=== PATIENT | male | born 1990 | race Caucasian/White ===

== ENCOUNTER 2023-09-29 16:35 | Emergency (ER) | payer OTHER, SELFPAY ==
--- NOTE | 2023-09-29 16:38 | ED_ITS ---
HPI - General Adult General Time Seen by Provider: 16:38 Date Seen: 09/29/23 Chief complaint: Chest Pain Stated complaint: chest pain Time Seen by Provider: 09/29/23 16:37 Source: patient, RN notes reviewed and old records reviewed Mode of arrival: ambulatory Limitations: no limitations History of Present Illness HPI narrative: 33-year-old male who presents today with chest pain. Patient notes left lower chest pain since yesterday with, it is been constant since then, worse with breathing. Some shortness of breath. Denies nausea, vomiting, radiation of pain. Took Aleve a couple hours ago for this. No trauma. No cough, no fever. Related Data Home Medications ?Medication ?Instructions ?Recorded ?Confirmed bupropion HCl 300 mg 24 hr tablet, 450 mg PO DAILY 09/29/23 09/29/23 extended release (Wellbutrin XL) clonazepam 0.5 mg tablet 0.5 mg PO .PRN 09/29/23 09/29/23 lamotrigine 100 mg tablet 100 mg PO DAILY 09/29/23 09/29/23 (Lamictal) vilazodone 40 mg tablet (Viibryd) 40 mg PO DAILY 09/29/23 09/29/23 Allergies Allergy/AdvReac Type Severity Reaction Status Date / Time No Known Drug Allergies Allergy Verified 09/29/23 16:51 PFSH PFS Social History Smoking Status: Former smoker How often do you have a drink containing alcohol: 2-3 times a week AUDIT-C Alcohol total score: 3 Non-prescribed substance use: denies use Exam Narrative: Exam Narrative: General: Well-developed and well-nourished, no acute distress Head: Atraumatic and normocephalic Eyes: Pupils are equal reactive, extraocular motions intact, conjunctiva clear ENT: External nose and ears are normal, posterior pharynx without erythema or exudate Neck: No midline cervical tenderness, full spontaneous range of motion the neck, trachea midline, no adenopathy Heart: Regular rate and rhythm no murmurs or thrills Lungs: Clear to auscultation bilaterally without wheezes or crackles Abdomen: Soft, nontender, nondistended with active bowel sounds Musculoskeletal: No tenderness, deformity, or edema Neurologic: Awake, alert, and oriented x3, no gross focal neurologic deficits, cranial nerves intact as tested Psych: Mood and affect are appropriate Skin: No rashes Const: Vital Signs, click to edit/add: Vital Signs - 24 hr 09/29/23 16:47 Temperature 98.0 F Pulse Rate [Left P ulse Oximeter] 72 Respiratory Rate 16 Blood Pressure [Ri ght Upper Arm] 120/74 Pulse Oximetry 96 Oxygen Delivery Me thod Room Air Course Course ED Course: Patient seen and examined, no prior records available for review. Patient presents today with left-sided chest pain constant since yesterday, worse with breathing. Not reproducible on exam. Symptoms are most consistent with pleuritic pain, cannot exclude acute coronary syndrome but clinically unlikely. Low risk by Well's criteria, PERC negative. Labs are ordered. Reevaluation(s) Time of Reevaluation #1: 17:27 Reevaluation #1: EKG independently interpreted by me performed at 4:57 p.m. demonstrates normal sinus rhythm, rate 67, QTC 414, NJ 128, normal axis, normal intervals. No prior for comparison. Labs ordered and independently interpreted by me with normal CBC, negative troponin. Time of Reevaluation #2: 17:48 Reevaluation #2: Labs ordered in panel interpreted by me with normal BMP, negative D-dimer. Chest x-ray independently interpreted by me does not demonstrate acute hemothorax, pneumothorax, or infiltrate. Hepatic panel is normal, lipase is normal. Patient is stable for discharge with outpatient follow-up, Tylenol ibuprofen as needed for pain. Updated patient with diagnosis and plan, he is interested in starting a prednisone burst and this will be prescribed. Vital Signs Vital signs: Initial Vital Signs Temperature 98.0 F 09/29/23 16:47 Temperature Source Temporal Artery Scan 09/29/23 16:47 Pulse Rate 72 09/29/23 16:47 Respiratory Rate 16 09/29/23 16:47 Blood Pressure 120/74 09/29/23 16:47 Blood Pressure Mean 89 09/29/23 16:47 Blood Pressure Position Semi-Fowlers 09/29/23 16:47 Pulse Oximetry 96 09/29/23 16:47 Oxygen Delivery Method Room Air 09/29/23 16:47 Vital Signs Temperature 98.0 F 09/29/23 16:47 Pulse Rate 72 09/29/23 16:47 Respiratory Rate 16 09/29/23 16:47 Blood Pressure 120/74 09/29/23 16:47 Pulse Oximetry 96 09/29/23 16:47 Oxygen Delivery Method Room Air 09/29/23 16:47 Temperature 98.0 F 09/29/23 16:47 Pulse Rate 72 09/29/23 16:47 Respiratory Rate 16 09/29/23 16:47 Blood Pressure 120/74 09/29/23 16:47 Pulse Oximetry 96 09/29/23 16:47 Oxygen Delivery Method Room Air 09/29/23 16:47 Medications Administered Medications: Discontinued Medications Generic Name Dose Route Start Last Admin Trade Name Spike PRN Reason Stop Dose Admin Ketorolac Tromethamine 15 mg 09/29/23 16:57 09/29/23 17:20 Ketorolac 15 Mg/Ml Inj IVP 09/29/23 16:58 15 mg ONCE ONE Administration Medical Decision Making Lab Data Labs: Lab Results 09/29/23 Range/Units 17:03 WBC 6.60 (4.50-11.00) K/uL RBC 4.72 (4.30-5.90) m/uL Hgb 14.7 (13.5-17.5) gm/dL Hct 43.4 (37.0-53.0) % MCV 92 (80-100) fL MCH 31 (26-34) pg MCHC 34 (32-36) gm/dL RDW Coeff of Jennifer 12.5 (11.5-15.5) % Plt Count 246 (140-440) K/uL Neut % (Auto) 53.3 (42.0-72.0) % Lymph % (Auto) 34.8 (20-44) % [place] % (Auto) 8.8 (0.0-11.0) % Eos % (Auto) 2.0 (0.0-7.0) % Baso % (Auto) 0.6 (0.0-3.0) % Neut # (Auto) 3.52 (1.7-7.0) K/uL Lymph # (Auto) 2.30 (0.90-2.90) K/uL [place] # (Auto) 0.60 (0.00-0.90) K/UL Eos # (Auto) 0.13 (0.00-0.50) K/uL Baso # (Auto) 0.04 (0.00-0.30) K/uL Abs Immat Gran (auto) 0.03 (0.00-0.30) K/uL Imm/Tot Granulo (auto) 0.5 % D-Dimer Quant (PE/DVT) 0.12 (0.00-0.50) ug/ml Sodium 138 (135-149) mmol/L Potassium 3.9 (3.6-5.1) mmol/L Chloride 108 (96-114) mmol/L Carbon Dioxide 24 (20-32) mmol/L Anion Gap 6 L (7-15) mEq/L BUN 16 (5-24) mg/dL Creatinine 0.8 (0.5-1.5) mg/dL Estimated Creat Clear 128.25 Estimated GFR 121 ml/min Glucose 92 (60-115) mg/dL Calcium 9.2 (8.4-10.6) mg/dL Magnesium 2.0 (1.5-2.6) mg/dL Total Bilirubin 0.5 (0.1-1.5) mg/dL Direct Bilirubin 0.3 (0.0-0.5) mg/dL AST 20 (12-35) U/L ALT 17 (4-50) U/L Alkaline Phosphatase 65 (40-150) U/L Total Protein 6.8 (6.0-8.3) g/dL Albumin 4.4 (3.3-5.0) g/dL Lipase 131 (23-300) U/L POC Troponin I 0.00 L (0.01-0.04) ng/ml Discharge Plan Discharge Clinical Impression: Pleuritic chest pain Patient Disposition: Home, Self-Care Condition: Stable Instructions: Pleurisy (DC) Additional Instructions: Continue Tylenol and ibuprofen as needed for pain Take prednisone as prescribed Activity Level: Activity as Tolerated Discharge Diet: Regular Prescriptions: No Action vilazodone [Viibryd] 40 mg tablet 40 mg PO DAILY Rx Instructions: must administer with a meal/food lamotrigine [Lamictal] 100 mg tablet 100 mg PO DAILY clonazepam 0.5 mg tablet 0.5 mg PO .PRN bupropion HCl [Wellbutrin XL] 300 mg tablet extended release 24 hr 450 mg PO DAILY Follow Up/Referrals: Provider,Not a Local [Primary Care Provider] - Stand Alone Forms: [facility] Info Instructions
[2023-09-29 16:47] VITALS: BP 120/74; PULSE 72; RESP 16; TEMP 36.7; O2SAT 96; BMI 24.3
--- NOTE | 2023-09-29 16:57 | CRLHL7_ITS ---
For Patients: As a result of the Century Cures Act, medical imaging exams and procedure reports are released immediately into your electronic medical record. You may view this report before your referring provider. If you have questions, please contact your health care provider. INDICATION: Chest pain, not otherwise described. COMPARISON: None available. TECHNIQUE: 1 view. FINDINGS: Medical Devices: None. Lung Volumes: Adequate inspiration. No significant atelectasis. Lungs: Clear lungs. Pleura and Pleural spaces: No significant pleural effusion. No pneumothorax. Mediastinum: Normal cardiomediastinal silhouette. Bony Thorax and Soft Tissues: No significant incidental findings. IMPRESSION: No radiographic findings to explain chest pain. Dictated by Asa Rodriguez MD @ 09/29/2023 5:42:07 PM (Electronically Signed)
[2023-09-29 17:11] LABS: Basophils Absolute Auto 0.04 K/uL (0.00-0.30); Basophils Percent Auto 0.6 % (0.0-3.0); Eosinophils Absolute Auto 0.13 K/uL (0.00-0.50); Hematocrit 43.4 % (37.0-53.0); Hemoglobin* 14.7 gm/dL (13.5-17.5); Immature Granulocytes Abs Auto 0.03 K/uL (0.00-0.30); Immature Granulocytes Pct Auto 0.5 %; Lymphocytes Percent Auto 34.8 % (20-44); Mean Corpuscular HGB Conc 34 gm/dL (32-36); Mean Corpuscular Hemoglobin 31 pg (26-34); Mean Corpuscular Volume 92 fL (80-100); Monocytes Percent Auto 8.8 % (0.0-11.0); Neutrophils Absolute Auto 3.52 K/uL (1.7-7.0); Neutrophils Percent Auto 53.3 % (42.0-72.0); Platelet Count* 246 K/uL (140-440); RDW Coefficient of Variation % 12.5 % (11.5-15.5); Red Blood Count 4.72 m/uL (4.30-5.90)
[2023-09-29 17:15] LABS: Slide Review Reflex No
[2023-09-29] MEDS: KETOROLAC 15 MG/ML inj IVP (17:20)
[2023-09-29 17:28] LABS: Albumin* 4.4 g/dL (3.3-5.0)
[2023-09-29 17:29] LABS: Chloride* 108 mmol/L (96-114); Potassium* 3.9 mmol/L (3.6-5.1); Sodium* 138 mmol/L (135-149)
[2023-09-29 17:31] LABS: Alkaline Phosphatase* 65 U/L (40-150); Anion Gap 6 mEq/L (7-15); Aspartate Amino Transferase* 20 U/L (12-35); Bilirubin Direct* 0.3 mg/dL (0.0-0.5); Bilirubin Total* 0.5 mg/dL (0.1-1.5); Blood Urea Nitrogen* 16 mg/dL (5-24); Carbon Dioxide* 24 mmol/L (20-32); Creatinine* 0.8 mg/dL (0.5-1.5); Est. Creatinine Clearance* 128.25; Estimated Glomerular Filt Rate 121 ml/min; Glucose* 92 mg/dL (60-115); Total Protein* 6.8 g/dL (6.0-8.3)
[2023-09-29 17:32] LABS: Alanine Aminotransferase* 17 U/L (4-50); Calcium* 9.2 mg/dL (8.4-10.6); Lipase* 131 U/L (23-300)
[2023-09-29 17:35] LABS: D Dimer Quantitative* 0.12 ug/ml (0.00-0.50)
[2023-09-29 17:45] VITALS: PULSE 66; O2SAT 93
[2023-09-29 17:46] VITALS: BP 108/69; PULSE 64; RESP 16; O2SAT 95
== END 2023-09-29 18:01 | disposition home or self-care (01) ==
PROVIDERS: Emergency Provider Family Medicine
DX: R07.81 Pleurodynia (principal)
CPT/HCPCS: 36415; 71045; 80048; 80076; 83690; 83735; 84484; 85025; 85379; 93005; 96374; 99284; J1885